=== PATIENT | female | born 1985 | race Caucasian/White ===

== ENCOUNTER 2022-01-14 11:42 | Outpatient (CLI) | payer MEDICAID, SELFPAY ==
--- NOTE | 2022-01-14 11:45 | MR_ITS ---
WS: [id number] MRI BRAIN WITHOUT CONTRAST HISTORY: G43.909 - Migraine, unspecified, not intractable, without... COMPARISON: None available. TECHNIQUE: Diffusion imaging, multiplanar T1, T2 and FLAIR imaging obtained. No evidence for acute infarct or hemorrhage. Sung-white matter differentiation is normal. No remote or acute infarcts are volume loss. Ventricles and extra-axial spaces are normal. No inferior displacement of cerebellar tonsils. The sella turcica and pituitary gland are unremarkabl e. Dural venous sinuses and picayune of Scales demonstrate no abnormality on this unenhanced studies. Paranasal sinuses: Minimal mucoperiosteal thickening in the maxillary sinuses. No air-fluid levels. Mastoid air cells: Normal. Calvarium and scalp: Intact. MR/MR head wo con* [id number] IMPRESSION: 1. Unremarkable noncontrast MRI brain. 2. Minimal mucoperiosteal thickening in the maxillary sinuses.
== END 2022-01-14 11:43 | disposition home or self-care (01) ==
LOC: RAD 11:44
PROVIDERS: PCP Nurse Practitioner Family; Visit Provider Specialist
DX: G43.909 Migraine, unspecified, not intractable, without status migrainosus (principal)
CPT/HCPCS: 70551

== ENCOUNTER 2022-04-02 19:40 | Emergency (ER) | payer MEDICAID, SELFPAY ==
[2022-04-02 19:58] VITALS: BP 150/92; PULSE 73; RESP 18; TEMP 36.7; O2SAT 98; BMI 44.3
--- NOTE | 2022-04-02 20:07 | W.ED.BACK ---
HPI - Back Pain/Injury General: Chief Complaint: Back Pain/Injury Stated Complaint: back pain Time Seen by Provider: 04/02/22 20:07 History of Present Illness: 36-year-old female comes in today for complaints of low back pain. 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 Patient reports some increased discomfort over the last week. Patient reports today she was working out and felt a strain in her right lower back during a lift of approximately 300 pounds. Patient appears nontoxic. Patient denies any bowel or bladder loss of control. Associated symptoms: Deny abdominal pain or fever(s) Review of Systems Const: Denies: fever(s) GI: Denies: abdominal pain : Denies: difficulty voiding Musc: Reports: back pain PFSH ED PFSH: Family History Grandmother Hypertension Arthritis Grandmother Diabetes Grandfather Diabetes Social History Smoking and tobacco status: former smoker Alcohol intake: never Female Reproductive History: Date of last menstrual period: 03/17/22 Physical Exam Const: COMMON NORMALS: alert HENMT: COMMON NORMALS: normocephalic HEAD & SCALP: normocephalic Neck/C-Spine: COMMON NORMALS: full ROM Resp: COMMON NORMALS: normal respiratory effort Cardio: COMMON NORMALS: regular rate RATE: regular rate Back/Pelvis: THORACIC SPINE/UPPER BACK: No thoracic spinal tenderness LUMBAR SPINE/LOWER BACK: No lumbar spinal tenderness and Yes paraspinal muscle tenderness Lumbar paraspinal muscle tenderness: left Extremity: COMMON NORMALS: normal to inspection and full ROM Neuro: SENSORIUM/ORIENTATION: Yes alert Skin: COMMON NORMALS: turgor normal GENERAL SKIN EXAM: turgor normal Course Vital Signs: Vital signs: Vital Signs Temperature 98.1 F 04/02/22 19:58 Pulse Rate 73 04/02/22 19:58 Respiratory Rate 18 04/02/22 19:58 Blood Pressure 150/92 04/02/22 19:58 Pulse Oximetry 98 04/02/22 19:58 Oxygen Delivery Me thod 04/02/22 19:58 MDM - Back Pain/Injury Medical Decision Making 36-year-old female comes in today for complaints of low back pain. On exam patient has no tenderness along the thoracic or lumbar spine. Patient does have some left side paraspinous muscle tenderness. Vital signs are normal. Patient appears nontoxic. No signs of serious illness or injuries noted. Differential diagnosis includes lumbar muscle strain, intervertebral disc disease, facet arthropathy. Reviewed exam with patient recommendations for treatment for lumbar muscle strain. Discussed need for return to normal activity. Patient was given 30 mg of Toradol and will be kept on Toradol tablets. Patient was recommended to follow-up with primary care for further instruction return to ER for worsening symptoms. Discharge Plan Discharge Patient Disposition: Home Clinical Impression: Strain of lumbar region Qualifiers: Encounter type: initial encounter Qualified Code(s): S39.012A - Strain of muscle, fascia and tendon of lower back, initial encounter Condition: Stable Prescriptions: New ketorolac 10 mg tablet 10 mg PO Q6H PRN (Reason: pain) 3 Days Qty: 15 0RF No Action escitalopram oxalate 20 mg tablet 20 mg PO DAILY norgestimate-ethinyl estradiol 0.25-35 mg-mcg tablet 1 tab PO DAILY topiramate [Topamax] 100 mg tablet 100 mg PO DAILY Qty: 30 3RF Rx Instructions: Take 1 tab with supper Discharge Orders: Discharge ED (Routine); Ordered 04/02/22 Ordered By: Stephen Lucas Referrals: Janel Hammond FNP [Primary Care Provider] - Discharge Diet: Usual diet Discharge Activity: Increase activity as tolerated Patient Instructions: Low Back Strain (ED), Lower Back Exercises (ED) Activity Restrictions/Additional Instructions: Light activity as tolerated. Gentle stretching and range of motion exercises. You may continue with light lifting but no heavy or straining is recommended. Follow-up with primary care in 3 to 5 days for recheck. Discuss return to heavy lifting with operations trainer or nutritional health coach. Return to ER for fever greater than 100.4, loss of bowel or bladder control, or new concerns. Coding Level of Care Code ED Supervisor Cd Area for Randi Underwood
[2022-04-02] MEDS: ketorolac 30 mg/mL INJ IM (20:31)
== END 2022-04-02 20:35 | disposition home or self-care (01) ==
PROVIDERS: Emergency Provider Nurse Practitioner Family; PCP Nurse Practitioner Family
DX: S39.012A Strain of muscle, fascia and tendon of lower back, initial encounter (principal); Z87.891 Personal history of nicotine dependence; X50.0XXA Overexertion from strenuous movement or load, initial encounter; Y93.B3 Activity, free weights
CPT/HCPCS: 96372; 99284; J1885

== ENCOUNTER 2022-12-02 20:00 | Outpatient (CLI) | payer MEDICAID, SELFPAY | END 2022-12-02 20:01 | disposition home or self-care (01) | LOC: SLEEP 12-03 05:04 | PROVIDERS: PCP Nurse Practitioner Family; Visit Provider Nurse Practitioner Family | DX: G47.33 Obstructive sleep apnea (adult) (pediatric) (principal); G47.10 Hypersomnia, unspecified | CPT/HCPCS: 95810 ==

== ENCOUNTER 2023-05-14 21:24 | Observation (INO) | payer MEDICAID, SELFPAY ==
[2023-05-14 21:30] VITALS: BP 195/121; PULSE 73; RESP 20; TEMP 36.6; O2SAT 100; BMI 44.6
[2023-05-14 21:51] LABS: Basophils # 0.1 10^3/uL (0.0-0.1); Basophils % 0.4 %; Eosinophils # 0.1 10^3/uL (0.0-0.8); Eosinophils % 0.9 %; Hematocrit 41.4 % (36-47); Lymphocytes # 2.8 10^3/uL (0.8-4.8); Lymphocytes % 21.6 %; Mean Corpuscular HGB Conc 32.6 g/dL (30-55); Mean Corpuscular Hemoglobin 30.1 pg (27-33); Mean Corpuscular Volume 92.4 fl (85-98); Mean Platelet Volume 10.7 fL (7.4-10.4); Monocytes # 0.9 10^3/uL (0.2-0.9); Monocytes % 6.6 %; Neutrophils # 9.17 10^3/uL (1.8-7.7); Nucleated Red Blood Cells % 0 %; Platelet Count 293 10^3/cmm (157-399); Red Blood Count 4.48 10^6/uL (3.85-5.65); Red Cell Distribution Width 13.2 % (12.1-15.1)
--- NOTE | 2023-05-14 22:03 | ED_ITS ---
HPI - Abdominal Pain General: Chief Complaint: Abdominal Pain Stated Complaint: abdomen pain Time Seen by Provider: 05/14/23 21:30 History of Present Illness: Patient is in today for sudden onset abdominal pain. She reports that about 430 today she started having severe abdominal pain. She reports it is mostly across the entire center of her abdomen. She reports that she is feeling very chilled this evening. She denies any vomiting. She reports that this did happen approximately a week ago on Thursday and she had similar pain with a cramping spasming type feeling. She reports that she does not feel any cramping or spasming today. She does not think she is but her last unprotected intercourse was last Thursday at the end of her menstrual cycle. Associated Symptoms: Reports chills; Denies dysuria, fever(s), nausea and vomiting Related Data: Date of Last Menstrual Period: 04/28/23 Review of Systems Const: Reports: chills; Denies: fever(s) Card: Denies: chest pain or palpitations Resp: Denies: dyspnea, productive cough or non-productive cough GI: Reports: abdominal pain; Denies: nausea or vomiting : Denies: flank pain, difficulty voiding or dysuria PFSH ED PFSH: Family History Grandmother Hypertension Arthritis Grandmother Diabetes Grandfather Diabetes Social History Smoking and tobacco/nicotine status: former use of tobacco/nicotine Second hand smoke exposure: No Alcohol intake: never Substance/Drug Use: never Female Reproductive History: Date of last menstrual period: 04/28/23 Physical Exam Const: COMMON NORMALS: patient oriented x3 and alert OTHER: Patient in obvious pain Neck/C-Spine: COMMON NORMALS: no JVD Resp: COMMON NORMALS: normal respiratory effort, No use of accessory muscles and clear to auscultation bilaterally AUSCULTATION: clear to auscultation bilaterally Cardio: COMMON NORMALS: no JVD, regular rate, regular rhythm, S1 normal heart sound present and S2 normal heart sound present RATE: regular rate RHYTHM: regular rhythm HEART SOUNDS: S1 normal heart sound present and S2 normal heart sound present GI: COMMON NORMALS: Soft to palpation INSPECTION: Yes normal to inspection AUSCULTATION: Yes normoactive bowel sounds PALPATION: Yes Soft to palpation, Yes Tenderness to palpation present (GI) Details: RLQ and RUQ and Yes Rebound tenderness present Neuro: COMMON NORMALS: patient oriented x3 SENSORIUM/ORIENTATION: Yes alert Course Vital Signs: Vital signs: Vital Signs Temperature 97.9 F 05/14/23 21:30 Pulse Rate 56 L 05/15/23 00:06 Respiratory Rate 16 05/15/23 00:06 Blood Pressure 151/90 05/15/23 00:06 Pulse Oximetry 100 05/15/23 00:06 Oxygen Delivery Me thod Room Air 05/15/23 00:06 MDM - Abdominal Pain Medical Decision Making Consider abdominal pain, urinary tract infection, appendicitis, cholecystitis White blood cell count is elevated at 13.1. Awaiting all other labs. Patient is exquisitely tender to the right lower quadrant abdomen with rebound tenderness. Medical Records Patient is in for acute abdominal pain. Labs reveal an elevated white blood cell count of 13.1. Physical exam findings are significant for right lower quadrant abdominal pain with rebound tenderness. Creatinine was elevated to 1. Administered 1 L IV fluid bolus. CT abdomen and pelvis with contrast is ordered. CT shows findings suggestive of early acute appendicitis. There is also a calcified nodular density within the right iliac muscle that appears to arise from the adjacent right iliac wing. It is reported as appearing nonaggressive but incompletely characterized recommend further eval with outpatient MRI with and without IV contrast. I called Dr. May at [address] results suggestive of early acute appendicitis. Advised him of lab findings including creatinine of 1. Advised him Zosyn is already ordered. He advised to admit patient to his service order Zosyn every 8 hours and give 1 dose of Toradol he will do surgery in the a.m. Advised the patient of CT findings and surgeon recommendations. Keep patient n.p.o. Discussed case with Dr. Iqbal who is going to do admit orders for the surgeon. Lab Data 05/14/23 21:47 05/14/23 21:47 Labs/Radiology: Radiology Impressions Abdomen/Pelvis CT 05/14/23 22:14 IMPRESSION: 1. Findings suggestive of early acute appendicitis. 2. Peripherally calcified nodular density within the right iliacus muscle, appears to arise from the adjacent right iliac wing. Nonaggressive appearing, but incompletely characterized. Recommend further evaluation with outpatient MRI with and without IV contrast. ADDENDUM: 05/14/23 [id number] THIS REPORT CONTAINS FINDINGS THAT MAY BE CRITICAL TO PATIENT CARE. The findings were verbally communicated via telephone conference with ANYI RODRIGUEZ at 11:18 PM [employer] on 05/14/2023. The findings were acknowledged and understood. Laboratory Results WBC 13.10 10^3/uL (3.29-11.43) H 05/14/23 21:47 RBC 4.48 10^6/uL (3.85-5.65) 05/14/23 21:47 Hgb 13.50 g/dL (11.27-16.99) 05/14/23 21:47 Hct 41.4 % (36-47) 05/14/23 21:47 MCV 92.4 fl (85-98) 05/14/23 21:47 MCH 30.1 pg (27-33) 05/14/23 21:47 MCHC 32.6 g/dL (30-55) 05/14/23 21:47 RDW 13.2 % (12.1-15.1) 05/14/23 21:47 Plt Count 293 10^3/cmm (157-399) 05/14/23 21:47 MPV 10.7 fL (7.4-10.4) H 05/14/23 21:47 Neut % (Auto) 70.0 % 05/14/23 21:47 Lymph % (Auto) 21.6 % 05/14/23 21:47 Larimer % (Auto) 6.6 % 05/14/23 21:47 Eos % (Auto) 0.9 % 05/14/23 21:47 Baso % (Auto) 0.4 % 05/14/23 21:47 Neut # (Auto) 9.17 10^3/uL (1.8-7.7) H 05/14/23 21:47 Lymph # (Auto) 2.8 10^3/uL (0.8-4.8) 05/14/23 21:47 Larimer # (Auto) 0.9 10^3/uL (0.2-0.9) 05/14/23 21:47 Eos # (Auto) 0.1 10^3/uL (0.0-0.8) 05/14/23 21:47 Baso # (Auto) 0.1 10^3/uL (0.0-0.1) 05/14/23 21:47 Nucleated RBC % (auto) 0 % 05/14/23 21:47 Nucleated RBCs # 0.0 /100WBC 05/14/23 21:47 Sodium 139 mmol/L (136-145) 05/14/23 21:47 Potassium 4.4 mmol/L (3.5-5.1) 05/14/23 21:47 Chloride 102 mmol/L (98-107) 05/14/23 21:47 Carbon Dioxide 25 mmol/L (22-29) 05/14/23 21:47 Anion Gap 16.4 (5-19) 05/14/23 21:47 BUN 12 mg/dL (6-20) 05/14/23 21:47 Creatinine 1.0 mg/dL (0.5-0.9) H 05/14/23 21:47 GFR Calculation 63.1 mL/min (90-130) L 05/14/23 21:47 Glucose 110 mg/dL (65-115) 05/14/23 21:47 Calculated Osmolality 288 mOsm/kg (285-295) 05/14/23 21:47 Calcium 9.7 mg/dL (8.5-10.5) 05/14/23 21:47 Total Bilirubin 0.3 mg/dL (0.15-1.2) 05/14/23 21:47 AST 13 U/L (0-32) 05/14/23 21:47 ALT 12 U/L (0-33) 05/14/23 21:47 Alkaline Phosphatase 69 U/L (35-105) 05/14/23 21:47 Total Protein 7.4 g/dL (6.6-8.7) 05/14/23 21:47 Albumin 4.2 g/dL (3.5-5.2) 05/14/23 21:47 Globulin 3.2 g/dL (1.3-4.6) 05/14/23 21:47 Lipase 25 U/L (13-60) 05/14/23 21:47 HCG, Qual Negative (Negative) 05/14/23 21:47 All radiology interpretation(s) finalized by discharge Discharge Plan Discharge Patient Disposition: Admitted As Inpatient Admit Provider: Benalcazar,Leonid Clinical Impression: Acute appendicitis Condition: Stable Coding Level of Care Code ED Guitar Repair Technician for Randi Underwood
[2023-05-14 22:07] LABS: HCG, Serum Qual Negative (Negative)
[2023-05-14 22:12] LABS: Alanine Aminotransferase 12 U/L (0-33); Albumin Level 4.2 g/dL (3.5-5.2); Alkaline Phosphatase 69 U/L (35-105); Anion Gap 16.4 (5-19); Aspartate Amino Transferase 13 U/L (0-32); Blood Urea Nitrogen 12 mg/dL (6-20); Calcium 9.7 mg/dL (8.5-10.5); Carbon Dioxide 25 mmol/L (22-29); Chloride 102 mmol/L (98-107); Globulin 3.2 g/dL (1.3-4.6); Glomerular Filtration Rate 63.1 mL/min (90-130); Glucose 110 mg/dL (65-115); Lipase 25 U/L (13-60); Osmolality Calculated 288 mOsm/kg (285-295); Potassium 4.4 mmol/L (3.5-5.1); Sodium 139 mmol/L (136-145); Total Bilirubin 0.3 mg/dL (0.15-1.2); Total Protein 7.4 g/dL (6.6-8.7)
--- NOTE | 2023-05-14 22:14 | CTR_ITS ---
PROCEDURE INFORMATION: Exam: CT Abdomen And Pelvis With Contrast Exam date and time: 05/14/2023 10:28 PM Age: 37 years old Clinical indication: Abdominal pain; Generalized; Patient HX: All over abd pain that is starting to favor right side per patient; Additional info: Rlq abd pain with elevated wbc TECHNIQUE: Imaging protocol: Computed tomography of the abdomen and pelvis with contrast. Radiation optimization: All CT scans at this facility use at least one of these dose optimization techniques: automated exposure control; mA and/or kV adjustment per patient size (includes targeted exams where dose is matched to clinical indication); or iterative reconstruction. Contrast material: OMNI 350; Contrast volume: 100 ml; Contrast route: INTRAVENOUS (IV); REPORTING DATA: Count of CT and Cardiac NM exams in prior 12 months: This patient has received 0 known CTs and 0 known cardiac nuclear medicine studies in the 12 months prior to the current study. COMPARISON: No relevant prior studies available. RADIATION DOSE METRICS: Total DLP (mGy-cm): 1215.92 FINDINGS: Liver: Unremarkable. Gallbladder and bile ducts: No calcified stones. No biliary ductal dilation. No pericholecystic fluid. Pancreas: Unremarkable. No duct dilation. Spleen: Mild splenomegaly measuring up to 13.9 cm. Adrenal glands: Unremarkable. Kidneys and ureters: No hydronephrosis or hydroureter. No renal or ureteral calculi. Stomach and bowel: Colonic diverticulosis without CT findings of acute diverticulitis. No bowel obstruction. Appendix: Mildly enlarged appendix measuring up to 10 mm with multiple appendicoliths and subtle periappendiceal stranding. Intraperitoneal space: Unremarkable. No free air. No significant fluid collection. Vasculature: No abdominal aortic aneurysm. Lymph nodes: No enlarged lymph nodes. Urinary bladder: Unremarkable as visualized. Reproductive: Unremarkable as visualized. Bones/joints: Peripherally calcified nodular density within the right iliacus muscle, may arise from the adjacent right iliac wing, series 3 image 57. Soft tissues: Unremarkable. CT/CT abdomen pelvis w con* [id number] IMPRESSION: 1. Findings suggestive of early acute appendicitis. 2. Peripherally calcified nodular density within the right iliacus muscle, appears to arise from the adjacent right iliac wing. Nonaggressive appearing, but incompletely characterized. Recommend further evaluation with outpatient MRI with and without IV contrast.
[2023-05-14 22:22] VITALS: RESP 20
[2023-05-14] MEDS: morphine 4 mg/mL SDV 1 mL 2 MG IVP (22:22)
[2023-05-14] MEDS: sodium chloride 0.9% 1,000 ML 999 ML IV (22:23)
[2023-05-14] MEDS: ondansetron 2 mg/ML SDV 2 mL 4 MG IVP (22:23)
[2023-05-14] MEDS: iohexol 350 mg/mL 500 mL Btl (per mL) IV (22:32)
[2023-05-14 23:31] VITALS: RESP 16
[2023-05-14] MEDS: morphine 4 mg/mL SDV 1 mL IVP (23:31)
[2023-05-14] MEDS: piperacillin-tazobactam 3.375 GM in sodium chloride 0.9% (plus) 50 ML IV (23:31)
[2023-05-15] VITALS (15 sets, daily range): BP systolic 119–153; BP diastolic 66–97; PULSE 56–77; RESP 14–18; TEMP 36.2–37.2; O2SAT 92–100; BMI 45.6; BMI 44.6
--- NOTE | 2023-05-15 00:10 | PC.NURSE ---
Report called to LIZABETH Horn on Med-Surg. All questions and concerns were addressed at time of report.
[2023-05-15] MEDS: ketorolac 30 mg/mL INJ IVP (00:15)
[2023-05-15 00:50] LABS: Add Urine Microscopic? YES; Bilirubin Urine Neg (Negative); Blood Urine Neg (Negative); Glucose Urine UA Norm (Normal); Ketones Urine 1+ (Negative); Leukocyte Esterase Urine Negative (Negative); Nitrate Urine Negative (Negative); Protein Urine Neg (Negative); Specific Gravity, Urine 1.015 (1.005-1.030); Sulfosalicylic Acid Urine Negative (Negative); Urine Appearance SL Hazy (CLEAR); Urine Color Light yellow (Yellow); Urobilinogen Urine Neg (Negative); pH Urine 8 (5-7)
[2023-05-15 00:51] LABS: Add Urine Culture? No; Bacteria Urine TRACE /hpf
[2023-05-15] MEDS: sodium chloride 0.9% 1,000 ML 100 ML IV (01:16)
--- NOTE | 2023-05-15 06:58 | PM.HP ---
Providers/Chief Complaint Admitting Physician: Jalen May MD Primary Care Provider: JOSE C Childs Chief Complaint: abdomen pain History of Present Illness Holli Heart is a 37 year old female Who presented to the emergency department with 5 hours of abdominal pain in the right lower quadrant. She was noted to have an elevated white count to [address] scan was done which showed evidence of early acute appendicitis, I was consulted for this finding.Patient denies previous abdominal surgeries except for C-sections, does not have any significant past medical history, first and she explains this pain. Pain at the time of my evaluation is 10/06. Medications/Allergies Home Medications Medication Instructions Recorded Confirmed Last Taken Type escitalopram oxalate 20 mg tablet 20 mg PO DAILY 11/21/21 08/27/22 Unknown History norgestimate 0.25 mg-ethinyl 1 tab PO DAILY 11/21/21 08/27/22 Unknown History estradiol 35 mcg tablet Allergies Allergy/AdvReac Type Severity Reaction Status Date / Time No Known Allergies Allergy Verified 08/27/22 07:50 PFSH Acute PFSH: Family History Grandmother Hypertension Arthritis Grandmother Diabetes Grandfather Diabetes Social History Smoking and tobacco/nicotine status: former use of tobacco/nicotine Second hand smoke exposure: No Alcohol intake: never Substance/Drug Use: never Female Reproductive History: Date of last menstrual period: 04/28/23 Vitals/I&O/Wt Last Vital Signs Temp 98.0 F 05/15/23 04:02 Pulse 69 05/15/23 04:02 Resp 16 05/15/23 04:02 BP 128/82 05/15/23 04:02 Pulse Ox 97 05/15/23 04:02 O2 Del Method Room Air 05/15/23 04:02 05/14/23 05/14/23 05/15/23 14:59 22:59 06:59 Intake Total 1050 / 1050 Balance 1050 / 1050 Weight last 48 hrs Weight 314 lb Weight 309 lb Weight 302 lb Physical Exam Narrative: General : Patient is well developed , no acute distress, oriented x3 Head : Normal cephalic, a-traumatic. Nose : Mucous membranes are without erythema. Lungs : Equal chest rise bilaterally, no use of accessory muscles, trachea is midline. CV : Rate and rhythm are normal. Abdomen : Soft, tender to palpation in the right lower quadrant, McBurney positive, no rebound tenderness. Extremities : No edema. Upper extremities are normal bilaterally. Back : non-tender to palpation, no CVA tenderness. Data 05/14/23 21:47 05/14/23 21:47 A&P Assessment and plan (1) Acute appendicitis: Plan After a complete history, physical examination and review of all available clinical data the following is my assessment. Patient will benefit from laparoscopic appendectomy. I Discussed all the risk and benefits including the risk of infection, bleeding, conversion to open procedure, injury of surrounding structures, injury to major vascular structures, appendiceal stump leak, abscess formation, hematoma formation. Patient agrees and wishes to proceed I have also explained to the patient that she is at high risk for hernia due to her elevated BMI. Procedure will be booked for this afternoon. Attestations Medical Necessity Statement*: Patient will likely be discharged today after laparoscopic appendectomy. Coding Level of Care Code Acute Code for [facility] Diagnoses Acute appendicitis K35.80
[2023-05-15] MEDS: lactated ringers 1,000 ML 125 ML IV (08:41)
[2023-05-15] MEDS: piperacillin-tazobactam 3.375 GM in sodium chloride 0.9% (plus) 50 ML IV (08:41)
[2023-05-15] MEDS: morphine 4 mg/mL SDV 1 mL IVP (08:53)
[2023-05-15] MEDS: sodium chloride 0.9% 1,000 ML 30 ML IV (10:24)
--- NOTE | 2023-05-15 10:25 | P.ANESASSM_ITS ---
Pre-Anesthetic Assessment Height/Weight: Height 1.75 m Weight 136.985 kg Temp Pulse Resp BP Pulse Ox O2 Del Method 97.7 F 77 16 138/97 97 Room Air 05/15/23 10:16 05/15/23 10:16 05/15/23 10:16 05/15/23 10:16 05/15/23 10:16 05/15/23 10:16 Operation Date: 05/15/23 13:20 Proposed Procedures p Laparoscopic Appendectomy(Not Applicable) - Jalen May MD Familial anesthetic complications: None Was Beta Kathia taken within 24 hours: N/A Was Clonidine taken within 24 hours: N/A Last intake: Intake Last Liquid Date 05/14/23 Last Liquid Time 19:00 Last Solid Date 05/14/23 Last Solid Time 19:00 Social No alcohol and No tobacco Exam alert, oriented x 3, clear to auscultation bilaterally and regular rate & rhythm Airway Mallampati: Class III Dentition: full Pulmonary Sleep Apnea Metabolic Morbid Obesity Anesthetic Plan ASA status: 2 Anesthesia: General Risk of > 500 ml blood loss (7ml/kg in children): No Medications/Allergies Home Medications Medication Instructions Recorded Confirmed Last Taken Type cholecalciferol (vitamin D3) 25 25 mcg PO DAILY 05/15/23 05/15/23 Unknown History mcg (1,000 unit) tablet (Vitamin D3) magnesium 200 mg tablet 200 mg PO BID 05/15/23 05/15/23 Unknown History [id number]-FA-Ca carb-vit K 1 tab PO DAILY 05/15/23 05/15/23 Unknown History 18 mg iron-400 mcg-500 mg tablet zinc acetate 25 mg (zinc) capsule 25 mg PO DAILY 05/15/23 05/15/23 Unknown History Allergies Allergy/AdvReac Type Severity Reaction Status Date / Time No Known Allergies Allergy Verified 08/27/22 07:50 Current Medications Generic Name Dose Route Start Last Admin Trade Name Freq PRN Reason Stop Dose Admin Piperacillin Sod/Tazobactam 50 mls @ 100 mls/hr 05/15/23 07:30 05/15/23 09:12 Sod 3.375 gm/ Sodium Chloride IV Infused Q8H JOSE ROBERTO Infusion Protocol Lactated Ringer's 1,000 mls @ 125 mls/hr 05/15/23 07:15 05/15/23 08:41 Lactated Ringers IV 125 mls/hr .Q8H JOSE ROBERTO Administration Sodium Chloride 1,000 mls @ 30 mls/hr 05/15/23 10:15 05/15/23 10:24 Sodium Chloride 0.9% IV 05/16/23 10:14 30 mls/hr .Q24H JOSE ROBERTO Administration Morphine Sulfate 4 mg 05/15/23 00:27 05/15/23 08:53 Morphine 4 Mg/Ml Sdv 1 Ml IVP 4 mg Q4H PRN Administration SEVERE PAIN PFSH Anesthesia Family History Grandmother Hypertension Arthritis Grandmother Diabetes Grandfather Diabetes Social History Smoking and tobacco/nicotine status: former use of tobacco/nicotine Second hand smoke exposure: No Alcohol intake: never Substance/Drug Use: never Female Reproductive History Date of last menstrual period: 04/28/23 Data Anesthesia 05/14/23 21:47 05/14/23 21:47 Short CBC 05/14/23 Range/Units 21:47 WBC 13.10 H (3.29-11.43) 10^3/uL Hgb 13.50 (11.27-16.99) g/dL Hct 41.4 (36-47) % MCV 92.4 (85-98) fl Plt Count 293 (157-399) 10^3/cmm Neut % (Auto) 70.0 % Neut # (Auto) 9.17 H (1.8-7.7) 10^3/uL BMP 05/14/23 21:47 Sodium 139 Potassium 4.4 Chloride 102 Carbon Dioxide 25 BUN 12 Creatinine 1.0 H Glucose 110 Calcium 9.7 Liver Function 05/14/23 Range/Units 21:47 Total Bilirubin 0.3 (0.15-1.2) mg/dL AST 13 (0-32) U/L ALT 12 (0-33) U/L Alkaline Phosphatase 69 (35-105) U/L Albumin 4.2 (3.5-5.2) g/dL Urine 05/15/23 Range/Units 00:30 Urine Color Light yellow (Yellow) Urine Appearance Sl hazy A (CLEAR) Urine pH 8 H (5-7) Ur Specific Enigma 1.015 (1.005-1.030) Urine Protein Neg (Negative) Urine Glucose (UA) Norm (Normal) Urine Ketones 1+ H (Negative) Urine Nitrate Negative (Negative) Urine Bilirubin Neg (Negative) Ur Leukocyte Esterase Negative (Negative) Urine RBC None (0-2) /hpf Urine WBC None (0-5) /hpf Cardiac Studies: No Data to Display
[2023-05-15] MEDS: scopolamine 1.5 Patch 1 PATCH TRANSDERMA (10:27)
[2023-05-15] MEDS: ondansetron 2 mg/ML SDV 2 mL 4 MG IVP (10:27)
[2023-05-15] MEDS: lidocaine-epi 2% 20 mL INJ 10 ML INJECTION (11:18)
[2023-05-15] MEDS: BUPivacaine 0.25% INJ 10 mL INJECTION (11:18)
--- NOTE | 2023-05-15 12:05 | PM.OP ---
Operative Report Date of procedure: May 15, 2023 Pre-op diagnosis: Acute appendicitis Post-op diagnosis: Same Procedure done: Laparoscopic appendectomy Specimens removed/disposition: Appendix Surgeon: Jalen May MD Supervisor Aircraft Maintenance: [employer] OR Staff Estimated blood loss: 5cc Complications: none Findings: Inflamed appendix, fibrinous discharge surrounding the appendix, no evidence of perforation. Brief History: 37-year-old female who presented with abdominal pain, acute appendicitis was confirmed with imaging and an elevated white count. I discussed all the risk and benefits of a laparoscopic appendectomy as documented in my preop note, patient agreed and wished to proceed. Procedure: Patient was brought into the OR. Placed in the supine position, the abdomen was prepped and draped in the usual sterile fashion. Timeout was conducted. The abdomen was accessed via infraumbilical incision with an open technique using a 12 mm Trocar Which Was Fixed to the Fascia with 0 Vicryl. Pneumoperitoneum Was Achieved and No Evidence of Visceral Injury Was Noted. I Then Moved Additional 5 Mm Trocars in the Suprapubic and Left Lower Quadrant Positions. The Appendix Was Identified, Blunt Dissection Was Used To Separate Appendix from the Terminal Ileum Due To Fibrinous Discharge from the Appendiceal Region. Once Appendix Was Liberated I Used LigaSure to Take down the Mesoappendix up to the Base at the Level of the Cecum. Once the Healthy Base Was Freed I Then Used a 45 Mm Blue Load Endo BARTOLOME Stapler to Transect the Appendix. Hemostasis Was Verified at the Level of the Staple Line, the Staple Line Looked Viable. The Specimen Was Retrieved Via Endo Catch Bag through the Umbilical Trocar Site. I Then Proceeded to Close the Umbilical Trocar Site Using a Gage-Miky Suture Passer under Direct Visualization. The Suprapubic Trocar Was Removed under Direct Visualization, the Left Lower Quadrant Trocar Was Used To Evacuate the Pneumoperitoneum and Subsequently Removed. The Umbilical Wound Was Closed in Layers with 3-0 Vicryl for the Subcutaneous Tissue and 4 Monocryl for the Skin the Remainder Wounds Were Closed with 4 Monocryl for the Skin. Dermabond Was Applied. At the End of the Procedure the Patient Tolerated Well Was Extubated and Transferred to the PACU in Stable Condition. All Counts Were Correct at the End of the Procedure.
--- NOTE | 2023-05-15 12:50 | ANE.PACU2 ---
Inpatient post-anesthesia follow up: Airway intact: Yes Vital signs: Temperature 98.5 F Pulse Rate 74 Respiratory Rate 18 Blood Pressure 122/70 Pulse Oximetry 94 Oxygen Delivery Me thod Room Air Oxygen Flow Rate 6 Fraction of Inspir ed Oxygen Hydration adequate: Yes Nausea and vomiting: No Pain level: 1 Mental status: Baseline
== END 2023-05-15 14:30 | disposition home or self-care (01) ==
LOC: ER 22:07 → MEDSURG 23:41
PROVIDERS: Emergency Medicine; Admitting Provider Surgery; Emergency Provider Nurse Practitioner Family; PCP Nurse Practitioner Family; Visit Provider Surgery
PROC: 0DTJ4ZZ Resection of Appendix, Percutaneous Endoscopic Approach (ICD-10-PCS; CPT 44970; principal; 2023-05-15 13:00)
DX: K35.890 Other acute appendicitis without perforation or gangrene (principal); G47.30 Sleep apnea, unspecified; E66.01 Morbid (severe) obesity due to excess calories; Z68.41 Body mass index [BMI] 40.0-44.9, adult
CPT/HCPCS: 44970; 36415; 51702; 74177; 80053; 81001; 83690; 84703; 85025; 88304; 96365; 96375; 99285; G0378; J1170; J1885; J2250; J2270; J2405; J2543; J2704; J2710; J3010; J3490; J7030; J7120; Q9967

== ENCOUNTER 2023-10-05 08:31 | Outpatient (CLI) | payer MEDICAID, SELFPAY ==
--- NOTE | 2023-10-05 08:35 | MRR_ITS ---
PROCEDURE INFORMATION: Exam: MR Pelvis Without Contrast Exam date and time: 10/05/2023 8:46 AM Age: 37 years old Clinical indication: Abnormal findings; Abnormal imaging test; Patient HX: Peripherally calcified nodular density within the right iliacus muscle, . appears to arise from the adjacent right iliac wing. Nonaggressive. Appearing, but incompletely characterized. Recommend further evaluation. With outpatient mri with and without iv contrast. ; Additional info: Muscle nodule TECHNIQUE: Imaging protocol: Magnetic resonance imaging of the pelvis without contrast. COMPARISON: CT abdomen pelvis w con* [id number] 05/14/2023 10:28 PM FINDINGS: Stomach and bowel: There are scattered colonic diverticula. Intraperitoneal space: No free fluid. Urinary bladder: Bladder is unremarkable. Reproductive: A left ovarian follicle measuring 1.2 cm in diameter is noted. A thin walled simple appearing fluid signal intensity cyst in the right ovary measures 2.2 x 1.7 x 2.3 cm on series 601, image 20. Bones/joints: There is a somewhat extended distribution of T1 hypointense marrow for the patient's age. The degree of hypointensity is less than that of adjacent normal skeletal muscle. A rounded lesion arising from the right iliac wing, a 1.6 x 1.4 x 1.4 cm in diameter rounded structure slightly hyperintense to the adjacent marrow on T2 series 601, image 5 is noted. This structure is isointense appearance to adjacent marrow on the T1 weighted sequence. Soft tissues: The right iliacus muscle is without evidence of edema or atrophy. MR/MR pelvis wo con* [id number] IMPRESSION: 1. Corresponding to the peripherally calcified rounded lesion arising from the right iliac wing on the prior CT, a similar in size rounded structure is noted. The MRI features are somewhat indeterminate. This may represent a small nonaggressive appearing osteo chondroma. Myositis ossifications related to previous injury of the iliacus muscle is an additional consideration. Although a malignant etiology is less likely, this region is incompletely characterized without intravenous contrast. Consider MRI with and without contrast for more definitive evaluation. 2. The degree of T1 hypointense marrow is greater than expected for the patient's age. 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 Correlation with clinical findings is recommended. 3. Simple appearing right ovarian cyst. No further imaging is recommended. (Reference: Chaka) 4. Colonic diverticulosis. REFERENCES: Chaka et al. Management of Incidental Adnexal Findings on CT and MRI: A White Paper of the ACR Incidental Findings Committee, J Am [facility]ton Radiol. 2019;17(2):248-254.
== END 2023-10-05 08:32 | disposition home or self-care (01) ==
LOC: RAD 08:32
PROVIDERS: PCP Nurse Practitioner Family; Visit Provider Nurse Practitioner Family
DX: M62.89 Other specified disorders of muscle (principal); N83.201 Unspecified ovarian cyst, right side; K57.90 Diverticulosis of intestine, part unspecified, without perforation or abscess without bleeding; D16.9 Benign neoplasm of bone and articular cartilage, unspecified
CPT/HCPCS: 72195

== ENCOUNTER 2023-11-12 07:53 | Outpatient (CLI) | payer MEDICAID, SELFPAY ==
--- NOTE | 2023-11-12 07:57 | MR_ITS ---
WS: [id number] MRI PELVIS WITH AND WITHOUT CONTRAST. COMPARISON: 10/05/[address] 05/14/2023. Multiplanar, multisequence imaging is performed with and without contrast. Limited precontrast imagin g. Postcontrast imaging in 3 planes, MultiHance 20 mL IV. Reidentified is the well-circumscribed intermediate signal nodule associated with the RIGHT iliacus. This nodule appears to be partially calcified or contain some increased protein content. This nodule measures 1.4 x 1.3 cm and is not increasing in size since 05/14/2023. No definite enhancement. There is very minimal cortical thickening and reaction noted on the prior CT. The marrow signal by MRI is n ormal. There is no adjacent inflammation within the iliac is muscle. This is a very benign and nonagg ressive appearing lesion. No ascites. There is a bulbous contour of the uterus. This study was not dedicated to the [employer] structu res. MR/MR pelvis wo/w con [id number] IMPRESSION: 1. Reidentified is the well-circumscribed partially calcified nodule associate d with the RIGHT iliacus muscle and iliac crest. Mass is unchanged in size sinc e 05/14/2023. This nodule measures 1.4 x 1.3 cm. No significant enhancement. Th ere is very mild cortical reaction of the iliac seen on this prior CT. No adjac ent inflammation within the muscle. Favor benign etiology. Suggest serial evalu ation to ensure there is no increase in size or change. Recommend follow-up MRI pelvis with and without contrast in 6 months. If this nodule is causing pain i t should be reevaluated more urgently. 2. No ascites.
[2023-11-12] MEDS: gadobenate dimeglumine 20 mL vial IV (08:30)
== END 2023-11-12 07:54 | disposition home or self-care (01) ==
LOC: RAD 07:53
PROVIDERS: PCP Nurse Practitioner Family; Visit Provider Nurse Practitioner Family
DX: R93.89 Abnormal findings on diagnostic imaging of other specified body structures (principal); R19.09 Other intra-abdominal and pelvic swelling, mass and lump
CPT/HCPCS: 72197; A9577

== ENCOUNTER 2023-12-17 08:08 | Day surgery (SDC) | payer MEDICAID, SELFPAY ==
[2023-12-17] VITALS (12 sets, daily range): BP systolic 146–169; BP diastolic 68–109; PULSE 50–69; RESP 14–20; TEMP 36.2–37.3; O2SAT 94–100; BMI 42.8
--- NOTE | 2023-12-17 01:19 | W.PM.OPSFHP ---
Same Day Surgery H&P Indication for Procedure/HPI DATE OF PROCEDURE: December 17, 2023 CHIEF COMPLAINT/INDICATIONFOR SURGICAL PROCEDURE: desires permanent sterilization PREOP DIAGNOSIS: desires permanent sterilization PLANNED PROCEDURE: Operation Date: 12/17/23 09:40 Proposed Procedures p Laparoscopic Salpingectomy partial 18646, Z30.2(Bilateral) - Adebayo Carcamo MD 37 y.o. on OCs wants permanent sterilization Medications/Allergies* Home Medications Medication Instructions Recorded Confirmed Type cholecalciferol (vitamin D3) 25 25 mcg PO DAILY 05/15/23 12/16/23 History mcg (1,000 unit) tablet (Vitamin D3) magnesium 200 mg tablet 200 mg PO BID 05/15/23 12/16/23 History zinc acetate 25 mg (zinc) capsule 25 mg PO DAILY 05/15/23 12/16/23 History norgestimate 0.25 mg-ethinyl 1 tab PO DAILY 10/26/23 12/16/23 History estradiol 35 mcg tablet (Sprintec (28)) buspirone 5 mg tablet 5 mg PO 1XD PRN Anxiety 12/16/23 12/16/23 History ibuprofen 600 mg tablet 600 mg PO 2XD PRN Mild Pain (Scale 12/16/23 12/16/23 History Score 1-4) tizanidine 4 mg tablet 4 mg PO 1XD PRN Muscle Spasticity 12/16/23 12/16/23 History Allergies/Adverse Reactions Allergy/AdvReac Type Severity Reaction Status Date / Time No Known Allergies Allergy Verified 12/16/23 10:37 Pertinent History/Comorbid Conditions* Surgical History (Updated 05/29/23 @ 09:03 by Jalen May MD) History of laparoscopic appendectomy 05/15/23 Dr May Family History (Updated 11/21/21 @ 14:55 by FADY Chau) Diabetes Grandmother Grandfather Arthritis Grandmother Hypertension Grandmother Social History Smoking and tobacco/nicotine status: former use of tobacco/nicotine Second hand smoke exposure: No Alcohol intake: never Substance/Drug Use: never Pertinent Exam Findings alert, oriented x 3, clear to auscultation bilaterally and regular rate & rhythm Recommendations Surgery/Procedure today Coding Level of Care Code Acute Code for Chg Fwd Time Spent (min) 20
[2023-12-17 08:41] LABS: OR HCG Qualitative Urine Negative (Negative)
--- NOTE | 2023-12-17 08:57 | W.PM.OPSUD ---
Surgery/Procedure H&P Update DATE OF PROCEDURE: December 17, 2023 DATE H&P PERFORMED: 10/26/23 H&P UPDATE INFORMATION: I have reviewed H&P completed within last 30 days, I have examined patient prior to procedure and No changes to prior documentation PREOP DIAGNOSIS: desires permanent sterilization PLANNED PROCEDURE: Operation Date: 12/17/23 09:40 Proposed Procedures p Laparoscopic Salpingectomy partial 65154, Z30.2(Bilateral) - Adebayo Carcamo MD
--- NOTE | 2023-12-17 09:06 | ANES.PREANE2 ---
Pre-Anesthetic Assessment Height/Weight: Height 1.75 m Weight 131.542 kg Temp Pulse Resp BP Pulse Ox O2 Del Method 99.2 F 69 16 169/109 96 Room Air 12/17/23 08:56 12/17/23 08:56 12/17/23 08:56 12/17/23 08:56 12/17/23 08:56 12/17/23 08:56 Preop Diagnosis: desires permanent sterilization Operation Date: 12/17/23 09:40 Proposed Procedures p Laparoscopic Salpingectomy partial 13931, Z30.2(Bilateral) - Adebayo Carcamo MD Familial anesthetic complications: None Was Beta Kathia taken within 24 hours: N/A Was Clonidine taken within 24 hours: N/A Last intake: Intake Last Liquid Date 12/16/23 Last Liquid Time 23:55 Last Solid Date 12/16/23 Last Solid Time 22:00 Social No alcohol and No tobacco Exam alert, oriented x 3, clear to auscultation bilaterally and regular rate & rhythm Airway Mallampati: Class III Dentition: full Metabolic Morbid Obesity Anesthetic Plan ASA status: 2 Anesthesia: General Risk of > 500 ml blood loss (7ml/kg in children): No Medications/Allergies Home Medications Medication Instructions Recorded Confirmed Last Taken Type cholecalciferol (vitamin D3) 25 25 mcg PO DAILY 05/15/23 12/16/23 12/09/23 History mcg (1,000 unit) tablet (Vitamin D3) magnesium 200 mg tablet 200 mg PO BID 05/15/23 12/16/23 12/09/23 History zinc acetate 25 mg (zinc) capsule 25 mg PO DAILY 05/15/23 12/16/23 12/09/23 History norgestimate 0.25 mg-ethinyl 1 tab PO DAILY 10/26/23 12/16/23 12/07/23 History estradiol 35 mcg tablet (Sprintec (28)) buspirone 5 mg tablet 5 mg PO 1XD PRN Anxiety 12/16/23 12/16/23 12/02/23 History ibuprofen 600 mg tablet 600 mg PO 2XD PRN Mild Pain (Scale 12/16/23 12/16/23 12/12/23 History Score 1-4) tizanidine 4 mg tablet 4 mg PO 1XD PRN Muscle Spasticity 12/16/23 12/16/23 12/10/23 History oxycodone-acetaminophen 5 mg-325 1 tab PO BID PRN pain #14 tabs 12/17/23 Unknown Rx mg tablet (Percocet) Allergies Allergy/AdvReac Type Severity Reaction Status Date / Time No Known Allergies Allergy Verified 12/16/23 10:37 [facility] Anesthesia Surgical History (Updated 05/29/23 @ 09:03 by Jalen May MD) History of laparoscopic appendectomy 05/15/23 Dr May Family History Grandmother Hypertension Arthritis Grandmother Diabetes Grandfather Diabetes Social History Smoking and tobacco/nicotine status: former use of tobacco/nicotine Second hand smoke exposure: No Alcohol intake: never Substance/Drug Use: never Data Anesthesia Cardiac Studies: No Data to Display
[2023-12-17] MEDS: ondansetron 2 mg/ML SDV 2 mL 4 MG IVP (09:14)
[2023-12-17] MEDS: sodium chloride 0.9% 1,000 ML 30 ML IV (09:14)
[2023-12-17] MEDS: scopolamine 1.5 Patch 1 PATCH TRANSDERMA (09:14)
--- NOTE | 2023-12-17 11:50 | ANE.PACU2 ---
Inpatient post-anesthesia follow up: Airway intact: Yes Vital signs: Temperature 97.9 F Pulse Rate 60 Respiratory Rate 14 Blood Pressure 153/96 Pulse Oximetry 97 Oxygen Delivery Me thod Room Air Oxygen Flow Rate Fraction of Inspir ed Oxygen Hydration adequate: Yes Nausea and vomiting: No Pain level: 1 Mental status: Baseline
--- NOTE | 2023-12-17 12:10 | P.OP_ITS ---
Operative Report Date of procedure: December 17, 2023 Pre-op diagnosis: desires permanent sterilization Post-op diagnosis: same Post-op findings: normal uterus, tubes, and ovaries Procedure done: laparoscopic bilateral partial salpingectomy Implants: none Specimens removed/disposition: bilateral partial fallopian tube segments Surgeon: Adebayo Carcamo MD Anesthesia: General Estimated blood loss (mL): 5 Complications: none Findings: normal uterus, tubes, and ovaries Condition: stable Disposition: PACU Brief History: 38 y.o. desires permanent sterilization Procedure: Informed consent was obtained. The patient was taken to the OR and placed on the table. General endotracheal anesthesia was induced. The patient was then placed in dorsolithotomy position. The abdomen and perineum were then prepped and draped in the usual fashion. A 5 mm subumbilical skin incision was made. A 5 mm trocar with sheath was then inserted into the peritoneal cavity under direct visualization with the laparoscope. After confirming intraperitoneal position, pneumoperitoneum was achieved. Two separate 5 mm incisions were made in the right and left mid- quadrants. 5 mm trocars with sheaths were then inserted into the peritoneal cavity under direct visualization with the laparoscope. The right fallopian tube was then identified to its fimbrial end. Starting at the fimbrial end, the mesosalpinx was then coagulated and cut using the Endoseal. A 3-4 cm portion of the right fallopian tube was excised and removed via one of the ports. This was sent to pathology. There was no bleeding seen. Similarly, the left fallopian tube was identified to its fimbrial end. A 3-4 cm portion of the left fallopian tube was excised and removed, sent to pathology. There was no bleeding. All instruments were then removed from the peritoneal cavity after the pneumoperitoneum was allowed to escape. The skin incisions were closed using 3- O chromic in subcuticular fashion. Dermabond was applied. The patient was then placed supine and awakened, taken the the PACU in good condition. Postop condition: stable EBL: 5 cc Complications: none Sponge, needles, and instruments counts correct x two
== END 2023-12-17 11:50 | disposition home or self-care (01) ==
PROVIDERS: Anesthesiology; PCP Nurse Practitioner Family; Visit Provider Obstetrics & Gynecology
PROC: (CPT 58661; principal; 2023-12-17 09:30)
DX: Z30.2 Encounter for sterilization (principal); Z87.891 Personal history of nicotine dependence; E66.01 Morbid (severe) obesity due to excess calories; Z68.41 Body mass index [BMI] 40.0-44.9, adult
CPT/HCPCS: 58661; 81025; 88302; J1100; J1200; J1885; J2250; J2405; J2704; J2710; J3010; J3490; J7030

== ENCOUNTER → 2023-12-23 11:31 | Outpatient (BNVA) | payer MEDICAID, SELFPAY | PROVIDERS: PCP Nurse Practitioner Family; Visit Provider Obstetrics & Gynecology | DX: Z01.419 Encounter for gynecological examination (general) (routine) without abnormal findings (principal) | CPT/HCPCS: 87624 ==

== ENCOUNTER 2024-06-07 11:58 | Outpatient (CLI) | payer MEDICAID, SELFPAY ==
--- NOTE | 2024-06-07 12:04 | MRR_ITS ---
PROCEDURE INFORMATION: Exam: MR Pelvis Without and With Contrast, Uterus and Adnexa Exam date and time: 06/07/2024 12:20 PM Age: 38 years old Clinical indication: Abnormal findings; Abnormal imaging test; Patient HX: Pelvic nodule; Additional info: Abnormal pelvic imaging TECHNIQUE: Imaging protocol: Magnetic resonance imaging of the pelvis without and with contrast. Exam focused on the uterus, cervix, and adnexa. Contrast material: MULTIHANCE; Contrast volume: 20 ml; Contrast route: INTRAVENOUS (IV); COMPARISON: 1. MR pelvis wo/w con [id number] 11/12/2023 8:14 AM 2. MR pelvis wo con* [id number] 10/05/2023 8:[address] abdomen pelvis w con* [id number] 05/14/2023 10:28 PM FINDINGS: Uterus: Normal contour and signal. Normal endometrium and junctional zone. Cervix is unremarkable. A tampon is noted within the vaginal canal Right ovary/adnexa: Ovary is normal in size. Normal follicles. Left ovary/adnexa: Ovary is normal in size. Normal follicles. Intraperitoneal space: No free fluid. Lymph nodes: No enlarged nodes. Bones/joints: No new osseous lesions are identified. Soft tissues: There is a stable well-circumscribed nodular lesion along the anterior aspect of the right iliac bone within the iliacus muscle which demonstrates intermediate signal intensity on T1 and T2 weighted images. The nodule measures 1.4 x 1.3 cm and is stable in size without significant enhancement noted. There is no discrete communication of the lesion and the marrow cavity of the right iliac bone. There is minimal periosteal reaction of the right iliac bone without associated marrow edema. No significant edema within the right iliacus muscle MR/MR pelvis wo/w con [id number] IMPRESSION: Stable 1.4 cm nodule within the right iliacus muscle along the anterior aspect of the right iliac crest, stable in size since 05/14/2023. This is of uncertain etiology however is likely benign given stability since 05/14/2023 and benign-appearing MRI and CT features.
[2024-06-07] MEDS: gadobenate dimeglumine 20 mL vial IV (13:07)
== END 2024-06-07 11:59 | disposition home or self-care (01) ==
LOC: RAD 12:02
PROVIDERS: PCP Nurse Practitioner Family; Visit Provider Nurse Practitioner Family
DX: M62.89 Other specified disorders of muscle (principal)
CPT/HCPCS: 72197; A9577

== ENCOUNTER 2025-01-09 09:56 | Emergency (ER) | payer MEDICAID, SELFPAY ==
[2025-01-09 10:11] VITALS: BP 164/106; PULSE 68; RESP 18; TEMP 36.8; O2SAT 98; BMI 39.9
[2025-01-09] MEDS: orphenadrine 30 mg/mL Inj 2 mL 60 MG IM (10:25)
--- NOTE | 2025-01-09 10:39 | W.ED.BACK ---
HPI - Back Pain/Injury General: Chief Complaint: Back Pain/Injury Stated Complaint: back pain Time Seen by Provider: 01/09/25 10:15 History of Present Illness: 39-year-old female who presents emergency room complaining of low back pain began when she bent over to do some cleaning. She is not lifting anything heavy has no trauma and fall she did not fall or injure her back. She does not have any difficulty with loss of function to her lower extremities she has not had any fecal incontinence or urinary retention no saddle paresthesias. Previous history of back surgery disc disease or neural impingement that she is aware of. She used to do a lot of power lifting and has some moderate back pain from that in the past but has not had significant pain before. Associated symptoms: Deny abdominal pain, chills, dysuria, fever(s) or urinary urgency Related Data Home Medications ?Medication ?Instructions ?Recorded ?Confirmed cholecalciferol (vitamin D3) 25 25 mcg PO DAILY 05/15/23 12/23/23 mcg (1,000 unit) tablet (Vitamin D3) magnesium 200 mg tablet 200 mg PO BID 05/15/23 12/23/23 zinc acetate 25 mg (zinc) capsule 25 mg PO DAILY 05/15/23 12/23/23 buspirone 5 mg tablet 5 mg PO 1XD PRN Anxiety 12/16/23 12/23/23 ibuprofen 600 mg tablet 600 mg PO 2XD PRN Mild Pain (Scale 12/16/23 12/23/23 Score 1-4) tizanidine 4 mg tablet 4 mg PO 1XD PRN Muscle Spasticity 12/16/23 12/23/23 Previous Rx's ?Medication ?Instructions ?Recorded diclofenac sodium 75 mg 75 mg PO Q12H PRN pain #20 tabs 01/09/25 tablet,delayed release methylprednisolone 4 mg tablets in See Rx Instructions PO .COMPLEX 01/09/25 a dose pack (Medrol (Christopher)) #21 ea tizanidine 4 mg tablet 4 mg PO Q6H PRN muscle spasticity 01/09/25 #20 tabs Allergies Allergy/AdvReac Type Severity Reaction Status Date / Time No Known Allergies Allergy Verified 12/23/23 08:31 Review of Systems Const: Denies: fever(s) or chills Card: Denies: chest pain Resp: Denies: dyspnea GI: Denies: abdominal pain : Denies: dysuria, urinary frequency or urinary urgency Musc: Denies: neck pain or back pain PFSH ED PFSH: Surgical History (Updated 01/10/24 @ 02:52 by Adebayo Carcamo MD) History of laparoscopic appendectomy 05/15/23 Dr May Family History Grandmother Hypertension Arthritis Grandmother Diabetes Grandfather Diabetes Social History Smoking and tobacco/nicotine status: never used tobacco/nicotine Second hand smoke exposure: No Alcohol intake: never Substance/Drug Use: never Physical Exam Const: COMMON NORMALS: no acute distress GENERAL APPEARANCE: cooperative and comfortable ORIENTATION/CONSCIOUSNESS: Yes awake, Yes oriented to person, Yes oriented to place and Yes oriented to time HENMT: COMMON NORMALS: normocephalic, atraumatic and hearing grossly normal bilaterally HEAD & SCALP: normocephalic and atraumatic Resp: COMMON NORMALS: normal respiratory effort, No retractions, No use of accessory muscles and clear to auscultation bilaterally AUSCULTATION: clear to auscultation bilaterally Cardio: COMMON NORMALS: regular rate, regular rhythm and No murmurs present (Cardio) RATE: regular rate RHYTHM: regular rhythm GI: COMMON NORMALS: Soft to palpation and No hepatosplenomegaly present AUSCULTATION: Yes normoactive bowel sounds PALPATION: Yes Soft to palpation, No Tenderness to palpation present (GI), No Guarding due to palpation present (GI) and Yes No hepatosplenomegaly present Extremity: COMMON NORMALS: normal to inspection, capillary refill normal, no clubbing, cyanosis or edema, no calf tenderness and no pedal edema Neuro: SENSORIUM/ORIENTATION: Yes oriented to person, Yes oriented to place and Yes oriented to time OTHER: Dorsal plantarflexion COVID 5 sensation lower extremities normal neurovascularly intact. Skin: COMMON NORMALS: no rashes or lesions noted GENERAL SKIN EXAM: no rashes or lesions noted Course Vital Signs: Vital signs: Vital Signs Temperature 98.3 F 01/09/25 10:11 Pulse Rate 68 01/09/25 10:11 Respiratory Rate 18 01/09/25 10:11 Blood Pressure 164/106 01/09/25 10:11 Pulse Oximetry 98 01/09/25 10:11 Oxygen Delivery Me thod Room Air 01/09/25 10:11 MDM - Back Pain/Injury Medical Decision Making Low back strain. Discussed with the patient imaging not indicated. Will discharge home on steroid taper diclofenac tizanidine to use. If not improving over the next week follow-up with primary care No radiology studies performed this visit Discharge Plan Discharge Patient Disposition: Home Clinical Impression: Strain of lumbar region Condition: Stable Prescriptions: New tizanidine 4 mg tablet 4 mg PO Q6H PRN (Reason: muscle spasticity) Qty: 20 0RF Rx Instructions: do not exceed 3 doses per 24 hrs diclofenac sodium 75 mg tablet,delayed release (DR/EC) 75 mg PO Q12H PRN (Reason: pain) Qty: 20 0RF methylprednisolone [Medrol (Christopher)] 4 mg tablets,dose pack See Rx Instructions .ROUTE .COMPLEX Qty: 21 0RF Rx Instructions: orally per package directions No Action zinc acetate 25 mg (zinc) Capsule 25 mg PO DAILY magnesium 200 mg Tablet 200 mg PO BID cholecalciferol (vitamin D3) [Vitamin D3] 25 mcg (1,000 unit) Tablet 25 mcg PO DAILY buspirone 5 mg tablet 5 mg PO 1XD PRN (Reason: Anxiety) tizanidine 4 mg tablet 4 mg PO 1XD PRN (Reason: Muscle Spasticity) ibuprofen 600 mg tablet 600 mg PO 2XD PRN (Reason: Mild Pain (Scale Score 1-4)) Discharge Orders: Discharge ED (Routine); Ordered 01/09/25 Ordered By: Shaan Luna Referrals: Janel Hammond FNP [Primary Care Provider, Unknown] Discharge Diet: Usual diet Discharge Activity: Increase activity as tolerated Patient Instructions: Back Pain (ED), Lower Back Exercises (ED), Opioid Safety, Pain Management, Patient Portal & Juve Instructions Activity Restrictions/Additional Instructions: Thank you for choosing [facility] for your healthcare needs today. It is very important that you follow up as instructed or that you return to the Emergency Department should you have concerns or if your condition changes or worsens in any way. You were seen emergency room for low back pain related to bending over. Studies have shown there is no benefit to imaging with back pain presentations like yours when there are no red flag symptoms. You were given pain anti-inflammatories and muscle relaxers to use as needed. If not improving follow-up with your primary care doctor Print Language: Frisian Coding Level of Care Code ED [place] for Randi Underwood
[2025-01-09 11:04] VITALS: BP 144/87; PULSE 72; O2SAT 99
== END 2025-01-09 11:05 | disposition home or self-care (01) ==
PROVIDERS: Emergency Provider Family Medicine; PCP Nurse Practitioner Family
DX: S39.012A Strain of muscle, fascia and tendon of lower back, initial encounter (principal); X58.XXXA Exposure to other specified factors, initial encounter
CPT/HCPCS: 96372; 96374; 99284; J1100; J1885; J2360

== ENCOUNTER → 2025-02-20 15:33 | Outpatient (BNVA) | payer MEDICAID, SELFPAY | PROVIDERS: PCP Nurse Practitioner Family; Visit Provider Nurse Practitioner Women's Health | DX: Z01.419 Encounter for gynecological examination (general) (routine) without abnormal findings (principal); Z12.4 Encounter for screening for malignant neoplasm of cervix; Z98.891 History of uterine scar from previous surgery; Z90.89 Acquired absence of other organs; F41.9 Anxiety disorder, unspecified | CPT/HCPCS: 80053; 82306; 83036; 84146; 84443; 85025; 87624 ==

== ENCOUNTER → 2025-03-08 17:00 | Outpatient (BNVA) | payer MEDICAID, SELFPAY | PROVIDERS: PCP Nurse Practitioner Family; Visit Provider Nurse Practitioner Women's Health | DX: Z12.4 Encounter for screening for malignant neoplasm of cervix (principal) | CPT/HCPCS: 87624 ==